=== PATIENT | male | born 1995 | race Caucasian/White ===

== ENCOUNTER 2020-01-26 15:09 | Emergency (ER) | payer OTHER ==
[~2020-01-26] VITALS: Ht 175.3 cm; Wt 53.8 kg
--- NOTE | 2020-01-26 16:22 | REP ---
INDICATION: CHEST PAIN. COMPARISON: None. TECHNIQUE: SINGLE PORTABLE AP VIEW OF THE CHEST WAS PERFORMED. FINDINGS: THERE IS NO ACUTE INFILTRATE OR PULMONARY EDEMA. LUNGS ARE CLEAR. HEART IS NOT SIGNIFICANTLY ENLARGED. MEDIASTINAL SILHOUETTE IS UNREMARKABLE. THE VISUALIZED OSSEOUS STRUCTURES ARE INTACT. IMPRESSION: NO ACUTE PULMONARY DISEASE. <Electronically signed by Remi Bond > 01/26/20 [id number]
[2020-01-26 16:45] LABS: BASO # 0.1 10^3/uL (0.0-0.2); BASO % 0.7 % (0.0-1.0); EOS # 0.1 10^3/uL (0.0-0.5); EOS % 0.8 % (0.0-3.0); HEMATOCRIT 45.4 % (42.0-52.0); HEMOGLOBIN 15.3 g/dl (13.5-17.5); LYMPH # 2.1 10^3/uL (1.5-5.0); LYMPH % 24.9 % (24.0-44.0); MEAN CORPUSCULAR HEMOGLOBIN 29.9 pg (27.0-33.0); MEAN CORPUSCULAR HGB CONC 33.7 g/dl (32.0-36.5); MEAN CORPUSCULAR VOLUME 88.8 fl (80.0-96.0); MONO # 0.7 10^3/uL (0.0-0.8); MONO % 8.3 % (0.0-5.0); NEUTROPHILS # 5.6 10^3/uL (1.5-8.5); NEUTROPHILS % 65.1 % (36.0-66.0); PLATELET COUNT, AUTOMATED 305 10^3/uL (150-450); RED BLOOD COUNT 5.11 10^6/uL (4.30-6.10); WHITE BLOOD COUNT 8.6 10^3/uL (4.0-10.0)
[2020-01-26 17:11] LABS: ALBUMIN 4.7 GM/DL (3.2-5.2); ALT/SGPT 25 U/L (12-78); BILIRUBIN,DIRECT 0.1 MG/DL (0.0-0.2); BILIRUBIN,TOTAL 0.4 MG/DL (0.2-1.0); CK-MB VALUE MASS 1.2 NG/ML (<3.6); CPK CREATINE PHOSPHOKINASE 127 U/L (39-308); LIPASE 65 U/L (73-393); MB/CK RELATIVE INDEX 0.94 (< OR =4); NT-PRO BNP 35 PG/ML (<125); TOTAL PROTEIN 7.7 GM/DL (6.4-8.2); TROPONIN I < 0.02 NG/ML (< 0.10)
[2020-01-26] MEDS ORDERED: ISOVUE-370 76% 100ML VIAL As Ordered ONE (17:25)
--- NOTE | 2020-01-26 18:34 | REPVR ---
PROCEDURE INFORMATION: Exam: CT Angiography Chest With Contrast Exam date and time: 01/26/2020 5:03 PM Age: 24 years old Clinical indication: Shortness of breath; Chest pain; Additional info: Chest pain/sob; R/O pe TECHNIQUE: Imaging protocol: Computed tomographic angiography of the chest with intravenous contrast. 3D rendering (Not supervised by radiologist): MIP and/or 3D reconstructed images were created by the technologist. Radiation optimization: All CT scans at this facility use at least one of these dose optimization techniques: automated exposure control; mA and/or kV adjustment per patient size (includes targeted exams where dose is matched to clinical indication); or iterative reconstruction. Contrast material: ISOVUE 370; Contrast volume: 75 ml; Contrast route: INTRAVENOUS (IV); COMPARISON: MO PORTABLE CHEST X-RAY 01/26/2020 4:07 PM FINDINGS: Pulmonary arteries: There are no abnormal filling defects within the pulmonary arterial system. The examination is negative for pulmonary thromboembolism. Aorta: The thoracic aorta is normal caliber. No aneurysm or dissection is seen. Lungs: No alveolar infiltrate is seen. Pleural space: No pleural effusion. No pneumothorax. Heart: Unremarkable. No cardiomegaly. No pericardial effusion. Lymph nodes: No lymphadenopathy. Bones/joints: Unremarkable. No acute fracture. Soft tissues: Unremarkable. IMPRESSION: 1. No pulmonary embolism identified. 2. No infiltrate or pleural effusion is seen. Electronically signed by: Brooklyn Benavides On 01/26/2020 18:33:43 PM
[2020-01-26 18:45] VITALS: BP 125/81
--- NOTE | 2020-01-26 19:46 | ECGEPIP ---
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
== END 2020-01-26 19:01 | disposition home or self-care (01) ==
LOC: M ED 15:09
DX: E03.9 Hypothyroidism, unspecified (principal); R53.1 Weakness; R07.89 Other chest pain; R06.02 Shortness of breath; M54.5 Low back pain; G89.29 Other chronic pain; F17.290 Nicotine dependence, other tobacco product, uncomplicated
CPT/HCPCS: 71045; 71275; 80047; 80076; 82550; 82553; 83690; 83880; 84443; 85025; 93005; 93041; 94760; 99285; Q9967

== ENCOUNTER → 2020-03-04 | Outpatient (REF) | payer OTHER ==
[2020-03-04 18:27] LABS: FREE T4 0.88 NG/DL (0.76-1.46)
[2020-03-04 18:28] LABS: THYROGLOBULIN ANTIBODY < 15.0 U/ML (<60.0); THYROID PEROXIDASE ANTIBODY < 28.0 U/ML (<60.0)
== END ==
LOC: M LAB REF 16:28
PROVIDERS: ATTEND Physician Assistant
DX: R94.6 Abnormal results of thyroid function studies (principal)

== ENCOUNTER → 2020-05-13 | Outpatient (REF) | payer OTHER ==
[2020-05-13 12:33] LABS: BASO % 0.6 % (0.0-1.0); EOS # 0.2 10^3/uL (0.0-0.5); EOS % 3.4 % (0.0-3.0); HEMATOCRIT 40.4 % (42.0-52.0); HEMOGLOBIN 13.2 g/dl (13.5-17.5); LYMPH # 1.6 10^3/uL (1.5-5.0); LYMPH % 28.9 % (24.0-44.0); MEAN CORPUSCULAR HEMOGLOBIN 30.2 pg (27.0-33.0); MEAN CORPUSCULAR HGB CONC 32.7 g/dl (32.0-36.5); MEAN CORPUSCULAR VOLUME 92.4 fl (80.0-96.0); MONO # 0.5 10^3/uL (0.0-0.8); MONO % 9.1 % (2.0-8.0); NEUTROPHILS # 3.1 10^3/uL (1.5-8.5); NEUTROPHILS % 57.8 % (36.0-66.0); PLATELET COUNT, AUTOMATED 236 10^3/uL (150-450); RED BLOOD COUNT 4.37 10^6/uL (4.30-6.10); WHITE BLOOD COUNT 5.4 10^3/uL (4.0-10.0)
[2020-05-13 13:00] LABS: ALBUMIN 4.3 GM/DL (3.2-5.2); ALT/SGPT 28 U/L (12-78); BILIRUBIN,TOTAL 0.2 MG/DL (0.2-1.0); BLOOD UREA NITROGEN 8 MG/DL (7-18); CALCIUM LEVEL 8.8 MG/DL (8.5-10.1); CARBON DIOXIDE LEVEL 30 MEQ/L (21-32); CHLORIDE LEVEL 107 MEQ/L (98-107); CREATININE FOR GFR 0.74 MG/DL (0.70-1.30); GLOMERULAR FILTRATION RATE > 60.0 (>60); GLUCOSE, FASTING 89 MG/DL (70-100); POTASSIUM SERUM 4.7 MEQ/L (3.5-5.1); SODIUM LEVEL 142 MEQ/L (136-145); TOTAL PROTEIN 6.6 GM/DL (6.4-8.2)
== END ==
LOC: M LAB REF 11:37
PROVIDERS: ATTEND Nurse Practitioner Family
DX: R11.2 Nausea with vomiting, unspecified (principal)

== ENCOUNTER 2021-09-10 13:02 | Emergency (ER) | payer OTHER ==
[~2021-09-10] VITALS: Ht 177.8 cm; Wt 54.8 kg
[2021-09-10] MEDS ORDERED: AMOX875T2 (13:08)
[2021-09-10] MEDS ORDERED: FLUORESCEIN OPHTH 1 MG STRIP OU ONE (13:30)
[2021-09-10] MEDS ORDERED: TETRACAINE 0.5% OPHTH SOLN 4ML OU ONE (13:30)
[2021-09-10] MEDS ORDERED: CIPROFLOXACIN 0.3% OPHTH SOLN 2.5ML OS ONE (14:00)
[2021-09-10] MEDS ORDERED: CIPR0.3S6 OS (14:02)
[2021-09-10 14:15] VITALS: BP 128/78
[2021-09-11] MEDS ORDERED: MARIJUANA (16:49)
[2021-09-11] MEDS ORDERED: IBUP80TA PO (17:24)
== END 2021-09-10 14:22 | disposition home or self-care (01) ==
LOC: M ED 13:02
DX: S05.02XA Injury of conjunctiva and corneal abrasion without foreign body, left eye, initial encounter (principal); H16.009 Unspecified corneal ulcer, unspecified eye

== ENCOUNTER 2021-09-11 16:41 | Emergency (ER) | payer OTHER ==
[~2021-09-11] VITALS: Ht 177.8 cm; Wt 54.3 kg
[2021-09-11 16:41] VITALS: BP 124/74
[~2021-09-11 16:41] MED LIST: AMOX875T2; CIPR0.3S6 OS
[2021-09-11] MEDS ORDERED: MARIJUANA (16:49)
[2021-09-11] MEDS ORDERED: IBUP80TA PO (17:24)
[2021-09-11] MEDS ORDERED: KETOROLAC TROMETHAMINE 10 MG TAB PO ONE (17:25)
== END 2021-09-11 17:46 | disposition home or self-care (01) ==
LOC: M ED 16:41
DX: S05.02XD Injury of conjunctiva and corneal abrasion without foreign body, left eye, subsequent encounter (principal); R01.1 Cardiac murmur, unspecified; M54.9 Dorsalgia, unspecified; F32.A Depression, unspecified

== ENCOUNTER 2023-05-01 22:04 | Emergency (ER) | payer OTHER ==
[~2023-05-01] VITALS: Ht 177.8 cm; Wt 57.6 kg
[~2023-05-01 22:04] MED LIST changes: +CIPR0.3S37 OS; -CIPR0.3S6 OS; +IBUP80TA PO; +MARIJUANA
[2023-05-01 22:05] VITALS: BP 130/90; TEMP 98.6; O2SAT 100
[2023-05-02] MEDS ORDERED: IBUP-1022 PO (16:23)
[2023-05-02] MEDS ORDERED: AMOX875T2 PO (16:23)
[2023-05-03] MEDS ORDERED: METH-1164 PO (22:02)
== END 2023-05-02 01:50 | disposition left against medical advice (07) ==
LOC: M ED 22:04
DX: Z53.21 Procedure and treatment not carried out due to patient leaving prior to being seen by health care provider (principal)

== ENCOUNTER 2023-05-02 12:09 | Emergency (ER) | payer OTHER ==
[~2023-05-02] VITALS: Ht 175.3 cm; Wt 56.9 kg
[2023-05-02] MEDS ORDERED: AMOX875T2 PO (16:23)
[2023-05-02] MEDS ORDERED: IBUP-1022 PO (16:23)
[2023-05-02] MEDS: KETOROLAC 60MG 2ML VIAL IM ONE (16:32)
[2023-05-02] MEDS: AUGMENTIN 875 MG TAB PO ONE (16:32)
[2023-05-02 17:16] VITALS: BP 115/77; TEMP 97.9; O2SAT 100
[2023-05-03] MEDS ORDERED: METH-1164 PO (22:02)
== END 2023-05-02 17:18 | disposition home or self-care (01) ==
LOC: M ED 12:09
DX: K04.7 Periapical abscess without sinus (principal); F12.10 Cannabis abuse, uncomplicated; Z79.2 Long term (current) use of antibiotics; Z79.1 Long term (current) use of non-steroidal anti-inflammatories (NSAID); Z79.899 Other long term (current) drug therapy
CPT/HCPCS: 96372; 99283; J1885

== ENCOUNTER 2023-05-03 17:48 | Emergency (ER) | payer OTHER ==
[~2023-05-03] VITALS: Ht 175.3 cm; Wt 55.5 kg
[~2023-05-03 17:48] MED LIST changes: +AMOX875T2 PO; +IBUP-1022 PO
[2023-05-03] MEDS: ACETAMINOPHEN 500 MG TAB PO ONE (20:15)
[2023-05-03] MEDS: methocarbamoL 500 MG TAB PO ONE (20:15)
[2023-05-03] MEDS ORDERED: METH-1164 PO (22:02)
[2023-05-03 22:13] VITALS: BP 120/68; TEMP 98.2; O2SAT 99
[2023-05-03] MEDS: KETOROLAC 60MG 2ML VIAL IM ONE (22:13)
== END 2023-05-03 22:15 | disposition home or self-care (01) ==
LOC: M ED 17:48
DX: M62.838 Other muscle spasm (principal); K21.9 Gastro-esophageal reflux disease without esophagitis; R01.1 Cardiac murmur, unspecified
CPT/HCPCS: 70450; 72125; 96372; 99283; J1885

== ENCOUNTER 2023-10-29 17:27 | Emergency (ER) | payer OTHER ==
[~2023-10-29] VITALS: Ht 172.7 cm; Wt 52.3 kg
[~2023-10-29 17:27] MED LIST changes: +METH-1164 PO
[2023-10-29] MEDS: BOOSTRIX VACCINE (TETANUS/DIPHTH/ACEL. PERTUSSIS) 0.5ML SYR IM ONE (22:47)
[2023-10-29] MEDS: LIDOCAINE 1% MDV 20ML VIAL SC ONE (23:08)
[2023-10-29] MEDS ORDERED: CEPH500C PO (23:25)
[2023-10-29] MEDS: CEPHALEXIN 500 MG CAP PO ONE (23:26)
[2023-10-29 23:32] VITALS: BP 119/85; TEMP 99; O2SAT 100
== END 2023-10-29 23:44 | disposition home or self-care (01) ==
LOC: M ED 17:27
DX: S91.312A Laceration without foreign body, left foot, initial encounter (principal); Y92.019 Unspecified place in single-family (private) house as the place of occurrence of the external cause; Y93.9 Activity, unspecified; Y99.9 Unspecified external cause status; K21.9 Gastro-esophageal reflux disease without esophagitis; R01.1 Cardiac murmur, unspecified; F12.10 Cannabis abuse, uncomplicated; Z23 Encounter for immunization; Z79.1 Long term (current) use of non-steroidal anti-inflammatories (NSAID); Z79.2 Long term (current) use of antibiotics; Z79.899 Other long term (current) drug therapy